=== PATIENT | male | born 1945 | race Caucasian/White ===

== ENCOUNTER 2017-12-21 00:10 | Outpatient (CLI) | payer MEDICARE, OTHER, SELFPAY ==
[2017-12-23 05:40] LABS: Hemoglobin A1C 8.1 % (4.5-6.2)
== END 2017-12-21 00:30 ==
PROVIDERS: PCP Family Medicine; Visit Provider Family Medicine
DX: E11.9 Type 2 diabetes mellitus without complications (principal)
CPT/HCPCS: 36415; 83036

== ENCOUNTER 2018-12-18 07:00 | Outpatient (CLI) | payer MEDICARE, OTHER, SELFPAY ==
[2018-12-18 12:32] LABS: COMMENT (LAB VIEW ONLY) 65.84 mg/dL; Microalb ug/mg Crea 10.2 ug/mg Cr
[2018-12-18 13:47] LABS: ALT 32 U/L (16-63); AST 12 U/L (15-37); Albumin 4.2 g/dL (3.4-5.0); Alkaline Phosphatase 57 U/L (46-116); BUN 25 mg/dL (7-18); Bilirubin, Total 0.6 mg/dL (0.2-1.0); CREATININE 0.96 mg/dL (0.70-1.30); Calcium 9.2 mg/dL (8.5-10.1); Calculated LDL 61 mg/dL; Chloride 103 mmol/L (98-107); Cholesterol 137 mg/dL (50-200); Glucose 136 mg/dL (70-100); HDL Cholesterol 53 mg/dL (40-60); Magnesium 1.9 mg/dL (1.8-2.4); Potassium 4.8 mmol/L (3.5-5.1); Sodium 139 mmol/L (136-145); Triglyceride 115 mg/dL (30-150)
[2018-12-18 14:03] LABS: Hemoglobin A1C 9.7 % (4.5-6.2)
== END 2018-12-18 07:20 ==
PROVIDERS: PCP Family Medicine; Visit Provider Family Medicine
DX: E11.9 Type 2 diabetes mellitus without complications (principal); E83.42 Hypomagnesemia
CPT/HCPCS: 36415; 80053; 80061; 82043; 82570; 83036; 83735

== ENCOUNTER 2019-10-13 11:41 | Emergency (ER) | payer MEDICARE, OTHER, SELFPAY ==
[2019-10-13 11:48] VITALS: BP 133/75; PULSE 104; RESP 18; TEMP 36.3; O2SAT 98
--- NOTE | 2019-10-13 11:58 | ED.GENADUL_ITS ---
Discharge Plan Disposition Patient Disposition: HOME Condition: Stable Discharge Details Chief Complaint: DentalOral Clinical Impression: Dental infection Primary Care Provider: Fifi Tejada ED Provider: Mario Abreu [place] Meds and New Rx's Prescriptions: New amoxicillin-pot clavulanate [Augmentin] 875-125 mg tablet 1 tab PO BID Qty: 14 RF: 0 Continued PreserVision AREDS-2 [id number] ue-xtxs-vb-mg capsule 1 tab PO DAILY RF: 0 Jardiance 25 mg tablet 25 mg PO DAILY Qty: 90 RF: 3 aspirin [Aspir-81] 81 MG tablet,delayed release (DR/EC) 1 tab PO DAILY RF: 0 sildenafil [Viagra] 100 MG tablet 1 tab PO PRN Qty: 42 RF: 2 ginkgo biloba extract 60 MG capsule 60 mg PO DAILY RF: 0 (DME) pen needle, diabetic [BD Ultra-Fine Jen Pen Needle] 1 EACH needle 1 ea Miscellaneous DAILY Qty: 100 RF: 4 Slow-Mag 71.5 MG tablet,delayed release (DR/EC) 71.5 mg PO BID Qty: 60 RF: 2 (DME) blood-glucose meter Misc 1 ea Miscellaneous ONCE Qty: 1 RF: 0 (DME) lancets 28 gauge misc 1 ea Miscellaneous DAILY Qty: 100 RF: 4 (DME) OneTouch Ultra Blue Test Strip Strip See Rx Instructions .ROUTE .MEDSUPPLY Qty: 100 RF: 3 metformin [Glucophage] 1,000 mg tablet 1,000 - 1,500 mg PO as directed Qty: 225 RF: 4 omeprazole magnesium [Prilosec OTC] 20 mg tablet,delayed release (DR/EC) 20 mg PO DAILY Qty: 90 RF: 4 tamsulosin 0.4 mg capsule 0.4 mg PO QHS Qty: 90 RF: 4 glipizide 10 mg tablet extended release 24hr 20 mg PO DAILY Qty: 180 RF: 4 simvastatin [Zocor] 40 mg tablet 40 mg PO DAILY Qty: 90 RF: 4 Discharge Instructions Instructions: Dental Abscess (ED) Additional Instructions: follow up with a dentist as soon as possible if you have pain take 1000mg tylenol every 6 hours for pain as needed if you have severe worsening pain, difficulty breathing or swallowing or fevers return to the emergency department Medical Decision Making 74 yo male comes in with one day of right lower tooth pain and mild swelling. Denies fevers, dyspnea or difficlty swallowing. 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 Suspect dental infection and will start on antibiotics and have him f/u with dentist. Return precautions given Differential Diagnosis Differential Diagnosis: dental abscess dental infection HPI General Mode of arrival: ambulatory . Date/Time Provider Initiated Documentation: 10/13/19 11:42 . Limitations to Documentation: no limitations . Information obtained by: patient . History of Present Illness 74 year old M presents to the emergency department with the chief complaint of right lower jaw pain, described as moderate, with intensity rated at 4. No relieving factors improve symptom(s), No exacerbating factors reported . Patient did receive the following treatments prior to arrival, none Related Data Home Medications Medication Instructions Recorded Confirmed aspirin [Aspir-81] 1 tab PO DAILY tab-cap 06/05/12 10/13/19 sildenafil [Viagra] 1 tab PO PRN #42 tab 06/16/12 10/13/19 ginkgo biloba extract 60 mg PO DAILY 04/30/13 10/13/19 pen needle, diabetic [BD #100 ndl 10/14/14 10/13/19 Ultra-Fine Jen Pen Needle] Slow-Mag 71.5 mg PO BID #60 tab-cap 04/25/17 10/13/19 blood sugar diagnostic #100 each 10/17/18 10/13/19 blood-glucose meter #1 ea 10/17/18 10/13/19 lancets 28 gauge #100 ea 10/17/18 10/13/19 vit C 250 mg-E 200 unit-zinc 40 1 tab PO DAILY cap 12/18/18 10/13/19 mg-copper 1 ql-miexpd-wabdxo capsule metformin 1,000 mg tablet 1,000 - 1,500 mg PO as directed 12/22/18 10/13/19 #225 tab-cap omeprazole magnesium 20 mg 20 mg PO DAILY #90 tab-cap 02/04/19 10/13/19 tablet,delayed release empagliflozin 25 mg tablet 25 mg PO DAILY #90 tab-cap 06/17/19 10/13/19 tamsulosin 0.4 mg capsule 0.4 mg PO QHS #90 cap 07/03/19 10/13/19 glipizide 10 mg tablet, extended 20 mg PO DAILY #180 tab-cap 07/11/19 10/13/19 release 24 hr simvastatin 40 mg tablet 40 mg PO DAILY #90 tab-cap 09/12/19 10/13/19 amoxicillin-pot clavulanate 1 tab PO BID #14 tab 10/13/19 [Augmentin] Previous Rx's Medication Instructions Recorded Slow-Mag 71.5 mg PO BID #60 tab-cap 04/25/17 blood sugar diagnostic #100 each 10/17/18 blood-glucose meter #1 ea 10/17/18 lancets 28 gauge #100 ea 10/17/18 metformin 1,000 mg tablet 1,000 - 1,500 mg PO as directed 12/22/18 #225 tab-cap omeprazole magnesium 20 mg 20 mg PO DAILY #90 tab-cap 02/04/19 tablet,delayed release empagliflozin 25 mg tablet 25 mg PO DAILY #90 tab-cap 06/17/19 tamsulosin 0.4 mg capsule 0.4 mg PO QHS #90 cap 07/03/19 glipizide 10 mg tablet, extended 20 mg PO DAILY #180 tab-cap 07/11/19 release 24 hr simvastatin 40 mg tablet 40 mg PO DAILY #90 tab-cap 09/12/19 amoxicillin-pot clavulanate 1 tab PO BID #14 tab 10/13/19 [Augmentin] Allergies Allergy/AdvReac Type Severity Reaction Status Date / Time No Known Allergies Allergy Unverified 10/13/19 11:53 General Stated Complaint: DentalOral DARIEN: 4 Review of Systems All systems reviewed & are unremarkable except as noted in HPI and below Constitutional Constitutional: Denies chills, Denies fever(s) and Denies weakness ENT Ears, Nose, Mouth, and Throat: Denies change in voice Cardiovascular Cardiovascular: Denies chest pain and Denies dyspnea Respiratory Respiratory: Denies cough and Denies dyspnea Gastrointestinal Gastrointestinal: Denies abdominal pain, Denies nausea and Denies vomiting Musculoskeletal Musculoskeletal: Denies joint swelling Neurologic Neurologic: Denies weakness Psychiatric Psychiatric: Denies depression [facility] Surgical History (Updated 12/16/18 @ 11:08 by Bj Borja) Tonsillectomy and adenoidectomy Social History Smoking/Tobacco Use Status: Never Alcohol Intake: never Drug use: Never Do you feel safe at home: Yes Do you feel safe in your relationship?: Yes Exam Const General: no acute distress Orientation: alert HENMT Head: normal to inspection Ears: external ears normal General nose exam: external nose normal Mouth: moist mucous membranes Eyes General: appearance normal, both eyes and all related structures Neck Neck: normal visual inspection Resp Effort & Inspection: normal respiratory effort and able to speak in complete sentences Cardio Rate: regular rate Skin General skin exam: no rashes or lesions noted Neuro General: patient alert and patient oriented x3 Extrem General: normal to inspection Psych Mental Status: mental status grossly normal Course Vital Signs Vital signs: Vital Signs Temperature 36.3 C L 10/13/19 11:48 Pulse 104 H 10/13/19 11:48 Respiratory Rate 18 10/13/19 11:48 Blood Pressure 133/75 10/13/19 11:48 Pulse Oximetry 98 10/13/19 11:48 Temperature 36.3 C L 10/13/19 11:48 Temperature Source Temporal Artery Scan 10/13/19 11:48 Pulse 104 H 10/13/19 11:48 Respiratory Rate 18 10/13/19 11:48 Respiratory Effort Non-Labored 10/13/19 11:52 Blood Pressure 133/75 10/13/19 11:48 Blood Pressure Position Sitting 10/13/19 11:48 Pulse Oximetry 98 10/13/19 11:48 Oxygen Delivery Method Room Air 10/13/19 11:48 Oxygen Flow Rate 0 10/13/19 11:48 Pain Level 6 10/13/19 11:48
== END 2019-10-13 12:05 | disposition home or self-care (01) ==
PROVIDERS: Emergency Provider Emergency Medicine; PCP Family Medicine
DX: R68.84 Jaw pain (principal); K04.7 Periapical abscess without sinus; E11.9 Type 2 diabetes mellitus without complications; Z79.84 Long term (current) use of oral hypoglycemic drugs
CPT/HCPCS: 99283

== ENCOUNTER 2020-07-06 10:49 | Outpatient (CLI) | payer MEDICARE, OTHER, SELFPAY ==
[2020-07-06 13:22] LABS: ALT 30 U/L (16-63); AST 11 U/L (15-37); Albumin 4.5 g/dL (3.4-5.0); Alkaline Phosphatase 61 U/L (46-116); Anion Gap 11.7 mmol/L (3-11); BUN 20 mg/dL (7-18); Bilirubin, Total 0.6 mg/dL (0.2-1.0); CO2 26.3 mmol/L (21.0-32.0); Calcium 9.2 mg/dL (8.5-10.1); Calculated LDL 52 mg/dL (<100); Chloride 103 mmol/L (98-107); Cholesterol 135 mg/dL (<200); Glucose 251 mg/dL (74-106); HDL Cholesterol 56 mg/dL (40-60); Magnesium 1.8 mg/dL (1.8-2.4); Potassium 4.1 mmol/L (3.5-5.1); Sodium 141 mmol/L (136-145); Total Protein 7.6 g/dL (6.4-8.2); Triglyceride 135 mg/dL (<150); Vitamin B12 180 pg/mL (193-986)
[2020-07-06 13:51] LABS: Microalb ug/mg Crea 18.3 ug/mg Cr
== END 2020-07-06 10:50 | disposition home or self-care (01) ==
LOC: LOS 10:50
PROVIDERS: PCP Family Medicine; Visit Provider Family Medicine
DX: E11.9 Type 2 diabetes mellitus without complications (principal); E83.42 Hypomagnesemia; E53.8 Deficiency of other specified B group vitamins
CPT/HCPCS: 36415; 80053; 80061; 82043; 82570; 82607; 83735

== ENCOUNTER → 2021-09-06 08:55 | Outpatient (BNVA) | payer MEDICARE, OTHER, SELFPAY | PROVIDERS: PCP Nurse Practitioner Family; Referring Provider Nurse Practitioner Family; Visit Provider Surgery | DX: K46.9 Unspecified abdominal hernia without obstruction or gangrene (principal); R01.1 Cardiac murmur, unspecified | CPT/HCPCS: 99215 ==

== ENCOUNTER 2021-09-20 03:51 | Outpatient (CLI) | payer MEDICARE, OTHER, SELFPAY ==
[2021-09-20 12:19] LABS: HCT 40.1 % (40.0-50.0); HGB 13.2 g/dL (13.5-17.5); MCH 28.3 pg (27.0-33.0); MCHC 32.9 % (32.0-36.0); MCV 86 fL (80-95); MPV 10.3 fL (8.0-11.0); Platelet Count 243 10^3/uL (130-400); RBC 4.66 10^6/uL (4.36-5.78); RDW 13.6 % (11.8-14.1); RDW-SD 42.7 fL; WBC 5.32 10^3/uL (4.4-10.8)
[2021-09-20 12:32] LABS: Hemoglobin A1C 7.3 % (<5.7)
[2021-09-20 12:49] LABS: COMMENT (LAB VIEW ONLY) 104.28 mg/dL; Microalb ug/mg Crea 6.4 ug/mg Cr
[2021-09-20 13:04] LABS: ALT 25 U/L (16-63); AST 9 U/L (15-37); Alkaline Phosphatase 38 U/L (46-116); Anion Gap 13.6 mmol/L (3-11); BUN 32 mg/dL (7-18); Bilirubin, Total 0.6 mg/dL (0.2-1.0); CO2 22.4 mmol/L (21.0-32.0); CREATININE 1.2 mg/dL (0.70-1.30); Calcium 8.9 mg/dL (8.5-10.1); Calculated LDL 47 mg/dL (<100); Chloride 104 mmol/L (98-107); Cholesterol 124 mg/dL (<200); Estimated GFR 58.56 (mL/min/1.73m2); Glucose 127 mg/dL (74-106); HDL Cholesterol 52 mg/dL (40-60); Potassium 3.9 mmol/L (3.5-5.1); Sodium 140 mmol/L (136-145); Total Protein 7.1 g/dL (6.4-8.2); Triglyceride 129 mg/dL (<150)
[2021-09-20 13:12] LABS: Vitamin B12 > 2000 pg/mL (193-986)
== END 2021-09-20 03:52 | disposition home or self-care (01) ==
LOC: LOS 03:51
PROVIDERS: PCP Nurse Practitioner Family; Visit Provider Family Medicine
DX: I10 Essential (primary) hypertension (principal); E11.9 Type 2 diabetes mellitus without complications; E53.8 Deficiency of other specified B group vitamins; E78.5 Hyperlipidemia, unspecified
CPT/HCPCS: 36415; 80053; 80061; 85027; 82043; 82570; 82607; 83036

== ENCOUNTER → 2021-10-16 02:54 | Outpatient (CLI) | payer MEDICARE, OTHER, SELFPAY ==
--- NOTE | 2021-10-16 14:52 | DI.US_ITS ---
APPROVED REPORT EXAM: Comprehensive 2D, Doppler, and color-flow Echocardiogram Patient Location: Out-Patient [facility] Operator: Rita Rosado RDCS (AE) Indications: Systolic heart murmur Other Information Study Quality: Adequate Conclusion Normal left ventricular wall thickness and chamber size. Estimated ejection fraction is 55 to 60%. Wall motion is normal Normal right ventricular size and systolic function Both atria are normal in size Trileaflet aortic valve with trace regurgitation Normal mitral valve with trace regurgitation Normal tricuspid valve with trace regurgitation Mildly dilated ascending aorta measuring 3.67 cm Wall motion Left Ventricle The left ventricle is normal size. The left ventricular systolic function is normal. The left ventric ular ejection fraction is within the normal range. There is normal left ventricular wall thickness. T here is normal LV segmental wall motion. There is no ventricular septal defect visualized. LVEF is 55 -60%. Right Ventricle The right ventricle is normal size. The right ventricular systolic function is normal. The RVSP is 21 .8mmHg. Atria The left atrium size is normal. The right atrium size is normal. The interatrial septum is intact wit h no evidence for an atrial septal defect. Aortic Valve The aortic valve is normal in structure. Aortic valve is trileaflet. There is no aortic valvular sten osis. Trace aortic regurgitation. Mitral Valve The mitral valve is normal in structure. No evidence of mitral valve stenosis. Trace mitral regurgita tion. Tricuspid Valve The tricuspid valve is normal in structure. There is no tricuspid valve stenosis. Trace tricuspid reg urgitation. Pulmonic Valve The pulmonary valve is normal in structure. There is no pulmonic valvular stenosis. Trace pulmonic re gurgitation. Great Vessels The aortic root is normal in size. The ascending aorta is mildly dilated. Aortic arch is normal in ca liber. IVC is normal in size and collapses >50% with inspiration. Pericardium There is no pericardial effusion. 2D Dimensions IVSD d PLAX 0.96 cm M: 0.6-1.2 LV Vol A2C d MOD 71.5 mL LVPW d PLAX 0.97 cm M: 0.6 - 1.2 LV Vol A4C d MOD 76.8 mL LVID d PLAX 4.06 cm M: 4.2 - 5.8 LA vol/ BSA A2C s A-L 15.5 mL/m2 LVDs 2.85 cm M: 2.5 - 4.0 LA vol/ BSA A4C s A-L 13.7 mL/m2 Ao Root d 3.00 cm M: 3.1 - 3.7 LA Vol/ BSA Biplane s A-L 14.7 mL/m2 RA Area A4C 12.27 cm2 LA Area A4C s MOD 10.88 cm2 RA Vol/ BSA A4C s A-L 16.2 mL/m2 LA Area A2C s MOD 11.67 cm2 Ao Asc Diam d 3.67 cm M: 2.6 - 3.4 LV EF A4C MOD 55.6 % LV EF Teichholz 56.1 % LV EF A2C MOD 57.9 % LVEF (Guzman's) 57.12 % M: 52 - 72 LV EF Biplane MOD 57.1 % LV Volume 59.47 mL M: 62 - 150 SV 43.29 mL LV Volume Index 33.98 mL/m2 M: 34 - 74 SV Index 24.66 mL/m2 LV Vol Biplane MOD 75.8 mL FS 28.90 % M-Mode TAPSE 2.68 cm (M/F) >1.7 LV Diastology MV E' medial 0.122 (>0.07 m/s) E/A Ratio 0.7 LV E/e MED 5.70 (<14) MV E Vmax 0.70 (0.4-1.3 m/s) MV E' lateral 0.093 (>0.1 m/s) MV A Vmax 1.00 (0.4-1.3 m/s) LV E/e LAT 7.50 (<14) MV E/A Ratio 0.67 MV E/E' medial 5.70 MV E/E' lateral 7.50 Aortic Valve LVOT Area 3.36 cm2 AoV Area Vmax 2.47 cm2 LVOT Vmax 0.88 m/s AoV Area/ BSA (Vmax) 1.41 cm2/m2 LVOT Mean Rajendra. 0.57 m/s BERNICE Mean Rajendra. 2.22 cm2 LVOT Peak Grad 3.1 mmHg BERNICE Mean Rajendra. Index 1.27 cm2/m2 LVOT Mean Grad 1.5 mmHg LVOT VTI 0.145 m LVOT Diam s 2.05 cm AoV Vmax 1.19 m/s Velocity Ratio 0.73 AoV Mean Rajnedra. 0.85 m/s AoV Peak Grad 5.7 mmHg LVOT SV 48.61 mL AoV Mean Grad 3.2 mmHg AoV VTI 0.206 m AoV Area VTI 2.35 cm2 AoV Area/ BSA (VTI) 1.34 cm/m2 Mitral Valve MV DT 375 (160-240 msec) MV PHT 109 msec MV Area PHT 2.02 cm2 MV VTI 0.209 m MV Area VTI 2.33 (4.0-6.0 cm2) Pulmonary Valve PV Vmax 1.18 (0.5-1.5 m/s) RVOT Peak Gr. 2.45 mmHg PV Peak Grad 5.5 mmHg RVOT Mean Gr. 1.00 mmHg PV Mean Grad 2.8 mmHg RVOT VTI 0.116 m PV VTI 0.184 m RVOT Vmax 0.78 m/s Tricuspid Valve TR Peak Grad 18.8 mmHg TR Vmax 2.17 m/s RA Pressure 3.00 mmHg RVSP (TR) 21.8 mmHg
== END ==
PROVIDERS: PCP Nurse Practitioner Family; Visit Provider Surgery
DX: R01.1 Cardiac murmur, unspecified (principal); I35.8 Other nonrheumatic aortic valve disorders; I34.0 Nonrheumatic mitral (valve) insufficiency
CPT/HCPCS: 93306

== ENCOUNTER 2021-10-25 02:25 | Outpatient (CLI) | payer MEDICARE, OTHER, SELFPAY ==
[2021-10-25 12:26] LABS: Source Nasal/Nares
[2021-10-25 14:20] LABS: COVID-19 PCR Negative (Negative)
== END 2021-10-25 02:26 | disposition home or self-care (01) ==
PROVIDERS: PCP Nurse Practitioner Family; Visit Provider Surgery
DX: Z01.818 Encounter for other preprocedural examination (principal); Z20.822 Contact with and (suspected) exposure to COVID-19
CPT/HCPCS: 87635

== ENCOUNTER 2021-10-27 05:54 | Day surgery (SDC) | payer MEDICARE, OTHER, SELFPAY ==
[2021-10-27] VITALS (8 sets, daily range): BP systolic 90–130; BP diastolic 52–85; PULSE 55–78; RESP 14–33; TEMP 36–36.5; O2SAT 94–98; BMI 27.1
--- NOTE | 2021-10-27 05:18 | W.PM.HP.N ---
Date of service: 10/27/21 History of Present Illness History of Present Illness Chief Complaint: right groin bulge Narrative: Tee is a 76-year-old male who had a right inguinal hernia repaired around the age of 4 years.? Most of his life this has not bothered him.? Over the past several years, he has noticed recurrent bulge in the inguinal region at the base of the scrotum.? This occurs most commonly with forceful defecation.? He has been able to reduce it on his own.? He has not required any hospitalization.? He does think that it has grown in size over the past year or so, and it has required increased frequency of reduction. I should mention that previous notes mention a recurrent LEFT inguinal hernia, but Mr. Snowden indicates that the hernia is right sided and his previous scar is on the right side as well. Today, he tells me that he has had occasional episodes of left-sided bulging. But he is able to reduce all of this without any difficulty. Furthermore, vigorous activity still causes the right side to bulge. That is more tender and causes more discomfort. He also has more difficulty reducing that. We talked about this at length this morning, and for today, we will proceed with right-sided inguinal herniorrhaphy and reassess his symptoms and desire to fix the left side in the future. During the last office visit, I detected a heart murmer. He underwent an ECHO that shows race mitral, aortic and tricuspid regurgitation. Review of Systems All systems reviewed & are unremarkable except as noted in HPI and below Constitutional Constitutional: Reports system reviewed and no additional complaints, except as documented Cardiovascular Cardiovascular: Reports system reviewed and no additional complaints, except as documented Respiratory Respiratory: Reports system reviewed and no additional complaints, except as documented Gastrointestinal Comments: hernia with straining for BM Genitourinary Genitourinary: Reports system reviewed and no additional complaints, except as documented Musculoskeletal Musculoskeletal: Reports system reviewed and no additional complaints, except as documented PFSH All Active Problems (Updated 10/27/21 @ 06:42 by Mary Quintero RN) Diabetes mellitus (Acute) uncontrolled/no nephropathy /no retinopathy 2015 Gastroesophageal reflux disease without esophagitis (Acute) Hyperlipidemia (Acute) Benign prostatic hyperplasia (Chronic) Diabetic retinopathy (Acute ~06/2021) 07/11/21 B/L MODERATE/SHIPPEE Inguinal hernia of left side without obstruction or gangrene (Acute) 2021-small B12 deficiency (Acute) Heart murmur (Acute) Medical History (Updated 10/27/21 @ 06:42 by Mary Quintero RN) History of alcoholism [place] (hard of hearing) Surgical History (Updated 10/27/21 @ 06:18 by Mary Quintero RN) History of appendectomy History of hernia repair Tonsillectomy and adenoidectomy Social History Smoking/Tobacco Use Status: Never Smoking risk assessment performed?: Yes Alcohol Intake: former Drug use: Never Substance use type: does not use Do you feel safe at home: Yes Do you feel safe in your relationship?: Yes Additional Social history: unable to assess [place] Allergies and Home Medications Allergies Allergy/AdvReac Type Severity Reaction Status Date / Time No Known Allergies Allergy Verified 10/26/21 12:46 Home Medications Medication Instructions Recorded Confirmed Type aspirin 81 mg tablet,delayed 1 tab PO DAILY 06/05/12 10/26/21 History release (Aspir-) ginkgo biloba extract 60 mg capsule 60 mg PO DAILY 04/30/13 10/26/21 History magnesium chloride 71.5 mg 71.5 mg PO BID #60 tab-caps 04/25/17 10/27/21 Rx (magnesium chloride) tablet,delayed release (Slow-Mag) blood-glucose meter #1 ea 10/17/18 10/26/21 Rx vit C 250 mg-vit E 90 mg-zinc 40 1 tab PO DAILY 12/18/18 10/27/21 History mg-copper 1 so-dbhyno-brcujl capsule (PreserVision AREDS-2) simvastatin 40 mg tablet (Zocor) 40 mg PO DAILY #90 tab-caps 08/30/20 10/27/21 Rx blood-glucose sensor (Dexcom G6 #3 ea 03/03/21 10/26/21 Rx Sensor device) blood-glucose transmitter (Dexcom #1 ea 03/03/21 10/26/21 Rx G6 Transmitter device) blood sugar diagnostic #100 ea 03/21/21 10/26/21 Rx lancets 28 gauge #100 ea 03/21/21 10/26/21 Rx blood sugar diagnostic (Blood #10 ea 01/26/22 09/01/22 Rx Glucose Test strips) blood-glucose meter #1 ea 03/22/21 10/26/21 Rx empagliflozin 25 mg tablet 25 mg PO DAILY #90 tab-caps 04/04/21 10/26/21 Rx (Jardiance) omeprazole magnesium 20 mg 20 mg PO DAILY #90 tab-caps 06/19/21 10/27/21 Rx tablet,delayed release (Prilosec OTC) tamsulosin 0.4 mg capsule 0.4 mg PO QHS bph #90 caps 09/11/21 10/27/21 Rx glipizide 10 mg tablet, extended 20 mg PO DAILY #180 tab-caps 09/18/21 10/27/21 Rx release 24 hr insulin glargine 100 unit/mL (3 25 unit (0.25 mL) subcut DAILY #24 09/20/21 10/27/21 Rx mL) subcutaneous pen (Lantus mL Solostar U-100 Insulin) metformin 1,000 mg tablet 1,000 - 1,500 mg PO BID #225 10/03/21 10/27/21 Rx tab-caps pen needle, diabetic 31 gauge x #100 ea 10/09/21 10/26/21 Rx 3/16 (Comfort EZ Pen [place]) Exam Const General: cooperative, healthy appearing and comfortable Orientation: awake and oriented x3 Eyes General: appearance normal, both eyes and all related structures Conjunctivae: conjunctivae normal Sclera: sclerae normal Resp Effort & Inspection: normal respiratory effort and able to speak in complete sentences Cardio Jugular venous pressure: no JVD Rate: regular rate Rhythm: regular rhythm Heart Sounds: S1 normal, S2 normal and murmur GI Inspection: non-distended Palpation: soft, no guarding, hernia and nontender Auscultation: normal bowel sounds Skin General skin exam: normal turgor Neuro General: patient alert, patient awake and patient oriented x3 Cognition: normal cognition Extrem Right lower extremity: no edema Left lower extremity: no edema
--- NOTE | 2021-10-27 05:23 | W.PM.DSUDISC ---
Discharge Plan Disposition Patient Disposition: HOME Condition: Good Discharge Details Reason For Visit: right direct inguinal hernia repair Attending Provider: Mike Siegel Primary Care Provider: Sreedhar Navarro Home Meds and New Rx's Prescriptions: Continued PreserVision AREDS-2 [id number] xi-gtwv-zh-mg capsule 1 tab PO DAILY aspirin [Aspir-81] 81 MG tablet,delayed release (DR/EC) 1 tab PO DAILY ginkgo biloba extract 60 MG capsule 60 mg PO DAILY Slow-Mag 71.5 MG tablet,delayed release (DR/EC) 71.5 mg PO BID Qty: 60 2RF (DME) blood-glucose meter Misc 1 ea Miscellaneous ONCE Qty: 1 0RF Rx Instructions: METER TYPE ONE TOUCH ULTRA MINI test daily simvastatin [Zocor] 40 mg tablet 40 mg PO DAILY Qty: 90 4RF (DME) Dexcom G6 Transmitter Device See Rx Instructions .ROUTE .MEDSUPPLY Qty: 1 0RF Rx Instructions: As directed (DME) Dexcom G6 Sensor Device See Rx Instructions .ROUTE .MEDSUPPLY Qty: 3 0RF Rx Instructions: As directed (DME) lancets 28 gauge misc 1 ea Miscellaneous DAILY Qty: 100 3RF Rx Instructions: FOR ONE TOUCH ULTRA MINI METER test once/day (DME) blood sugar diagnostic Strip See Rx Instructions .ROUTE .MEDSUPPLY Qty: 100 3RF Rx Instructions: test once a day (DME) blood-glucose meter Misc See Rx Instructions .ROUTE .MEDSUPPLY Qty: 1 0RF Rx Instructions: As directed, daily (DME) Blood Glucose Test Strip See Rx Instructions .ROUTE .MEDSUPPLY Qty: 10 0RF Rx Instructions: As directed, once a day Jardiance 25 mg tablet 25 mg PO DAILY Qty: 90 3RF omeprazole magnesium [Prilosec OTC] 20 mg tablet,delayed release (DR/EC) 20 mg PO DAILY Qty: 90 4RF tamsulosin 0.4 mg capsule 0.4 mg PO QHS Qty: 90 4RF glipizide 10 mg tablet extended release 24hr 20 mg PO DAILY Qty: 180 0RF Rx Instructions: take 2 tablets daily insulin glargine [Lantus Solostar U-100 Insulin] 100 unit/mL (3 mL) insulin pen 25 unit subcut DAILY Qty: 24 3RF metformin 1,000 mg tablet 1,000 - 1,500 mg PO BID Qty: 225 1RF Rx Instructions: Take one tablet in am and 1.5 tablet in evening (DME) pen needle, diabetic [Comfort EZ Pen [place]] 31 gauge x 3/16 needle See Rx Instructions .ROUTE .MEDSUPPLY Qty: 100 4RF Rx Instructions: Daily Discharge Instructions Instructions: Open Herniorrhaphy (IP) Additional Instructions: 1. Resume all of your medications. 2. Okay to use tylenol and ibuprofen over the counter as needed. 3. Leave bandage in place for 24 hours, then remove. 4. Shower with warm soapy water. Pat dry. Use a bandaid if needed to protect your clothing. 5. No soaking or tub baths until I see you in the office. 6. No heavy lifting until I see you in the office. 7.Call the office (or go directly to the emergency room after hours) if you notice any of the following: Develop chills (warm to touch), or if you have a thermometer and your temperature is above 101 Difficulty breathing or difficultly swallowing Persistent vomiting Any bleeding ? exceeding one tablespoon 8. Call your physician if the site where your intravenous was started becomes red, swollen, painful, and warm to touch. Referrals: Mike Siegel MD [ [facility] STAFF PHYSICIAN] - Activity:: no heavy lifting Remove Dressings/Wound Care:: 24 hours Shower/Bathe:: 24 hours Diet:: As Tolerated
--- NOTE | 2021-10-27 05:26 | ROE_ITS ---
Date of service: 10/27/21 Time of Service: 08:52 Operative Note Operative Note DATE OF PROCEDURE: 10/27/21 PRE-OP DIAGNOSIS: Recurrent right inguinal hernia POST-OP DIAGNOSIS: other (Direct right inguinal hernia) PROCEDURE: Open right inguinal herniorrpahy with mesh SURGEON: Mike Siegel [employer]ILDBIRTH AND INFANT CARE TEACHER: Chery Salazar Refer to Anesthesia Record ESTIMATED BLOOD LOSS: 25 PATHOLOGY: none sent Implants: Bard mesh Indications: Tee is a 76-year-old male who had a right inguinal hernia repaired around the age of 4 years.? Most of his life this has not bothered him.? Over the past several years, he has noticed recurrent bulge in the inguinal region at the base of the scrotum.? This occurs most commonly with forceful defecation.? He has been able to reduce it on his own.? He has not required any hospitalization.? He does think that it has grown in size over the past year or so, and it has required increased frequency of reduction. Procedure Description: I began by confirming the correct site with the patient. Next, after induction of general anesthesia, the anesthetic service established an ultrasound-guided local field block.. Surgical site was then prepped and draped in the usual fashion. I began by making an oblique incision over the right inguinal region. I dissected down through the skin to the deep fascia. Next, I incised the fascia along the length of the inguinal canal to the external ring. There were a fair amount of dense adhesions in the inguinal canal. I then carefully identified the ilioinguinal nerve and it from the cord structures.. Once this was complete, I bluntly dissected the shelving edge of the inguinal ligament down towards the pubic tubercle. The floor of the inguinal canal was attenuated with a large defect towards the pubic tubercle. I did not see any evidence of any previous repair of Hesselbach's triangle. I encircled all cord structures with a Chevy drain. Next, I began dissecting the specific cord structures. Great care was taken to spare the vas deferens and the blood supply to the testicle. There were dense adhesions around the internal ring, and I saw no evidence of of any indirect inguinal hernia. I believe Tee's symptoms were all arising from a direct inguinal hernia. Therefore, I cut and mesh to rebuild the posterior wall and floor of the inguinal canal. I started by fixing it to the pubic tubercle. Next, I used Prolene sutures to affix it to the shelving edge of the inguinal ligament and the conjoined tendon. Laterally I tacked it to the transversalis fascia and reconstructed an internal ring without any strain on the cord structures. Once this was complete, I irrigated the surgical field. It appeared hemostatic. I then closed the anterior portion of the fascia to reconstruct the front wall of the inguinal canal. I did this with interrupted Vicryl stitches. Once again, I irrigated the surgical field and inspected for hemostasis. Finally, I approximated the superficial fascia and the deep layers of the skin with absorbable suture. Skin was closed with absorbable sutures. Bandages were applied, the patient was awakened and transferred to the recovery unit.
--- OUTSIDE RECORDS SUMMARY | 2021-10-27 05:56 | XMS_ITS | Clinical Summary ---
:1945 Author Organization [facility] Address [address] [place] [address] Care Team Providers Name Role Phone Unknown, Provider Primary Care Provider Social History Tobacco Use Types Packs/Day Years Used Date Never Assessed Sex Assigned at Date Recorded Not on file Plan of Treatment Health Maintenance Due Date Last Done Comments Fall Risk Screening 2008 Care Teams Research And Evaluation Analyst Relationship Specialty Start Date End Date Unknown, Provider, PCP - General 12/31/14
--- OUTSIDE RECORDS SUMMARY | 2021-10-27 05:56 | XMS_ITS | Encounter Summary ---
:1945 Author Organization [facility] Address [address] [place] [address] Care Team Providers Name Role Phone Unknown, Provider Primary Care Provider Encounter Details Date Type Department Care Team Description 09/11/2006 Before [facility] Husam Decker Converted Visit Urology - [facility] Rand Vasquez MD (Lorena) [address] [facility] [address] [place] [address] [address] [place] [id number] (Wo rk) Social History Tobacco Use Types Packs/Day Years Used Date Never Assessed Sex Assigned at Date Recorded Not on file documented as of this encounter Progress Notes Husam Decker MD - 01/02[birth year]20091957 EST DIVISION OF UROLOGY PROGRESS/FOLLOWUP NOTE - 10/11/2006 ALICIA Snowden was seen in my office today. This 61gentleman was previously evaluated at an outside emergency room. He was engaged in rather strenuous activity. He had a sudden onset of right flank pain. He was evaluated in the local emergency room. Noncontrast CT scan was obtained. There was a question raised about the possibility of a right ureteral tumor. Mr. Snowden comes to the office today for further urologic evaluation and discussion of treatment options. Tee feels that he is voiding with a good stream. He feels that his bladder empties completely, and he denies any dysuria or gross hematuria. He has nocturia of, at most, one time per night, and often not at all. REVIEW OF SYSTEMS Review of systems was completed, documented, and discussed with the patient. CURRENT MEDICATIONS Current medications are listed as Vytorin, metformin, Avandia, a baby aspirin per day, and nige-ovu-cbhbbsu vitamin supplements. ALLERGIES He reports no allergies. SOCIAL HISTORY He does not smoke or use alcohol. He is a light user of caffeine. PAST MEDICAL HISTORY He reports no major cardiac or respiratory problems. Medical history is remarkable for his diabetes and high cholesterol as noted. PAST SURGICAL HISTORY He reports no prior surgical procedures. LABORATORY Mr. Snowden tells me that a PSA obtained previously was reported within normal limits. He does travel frequently between [place] and [place]. CT urogram was obtained prior to todays visit. I did review the CT urogram with Mr. Snowden. 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 Also noted were bilateral benign hydroceles, as well as a left inguinal hernia. ASSESSMENT AND PLAN I had a detailed discussion with Tee concerning these findings. I believe that thepreviously noted finding is most likely benign, but I have also discussed the possibility of proceeding to a more detailed urologic evaluation with cystoscopy and retrograde studies. Mr. Snowden declines that level of i ntervention at the present time. He has agreed to follow up in January with a CT scan at that time.Certainly if there is any change or other abnormalities noted, more detailed intervention can be undertaken. As far as the hydroceles and hernias, again are not bothersome to him, and he wishes no intervention. Likewise, outflow obstructive symptoms are not bothersome. I have asked him to contact my office if he should have other urologic questions, concerns or problems. Signed by Husam Decker MD 02/14/2007 13:57 Husam Decker MD - Husam Decker MD - Job ID: [id number] Doc ID: [id number] cc: documented in this encounter Plan of Treatment Not on filedocumented as of this encounter Procedures Procedure Name Priority Date/Time Associated Diagnosis Comme nts CT UROGRAM W/WO 09/11/2006 15:38 Results for this CONTRAST EDT procedure are i n the results section. documented in this encounter Results CT UROGRAM (09/11/2006 15:38 EDT) Anatomical Region Laterality Modality Other Specimen Narrative [facility] - 08/25/2008 13 :10 EDT pt to lab 1st for bun/creatinine. abd pain CT UROGRAM ??Sep 11, 2006 3:38:00 PM Clinical history: pt to lab 1st for bun/creatinine. abd pain Comparison: No comparisons. Technique: Pre-contrast scans were initi ally obtained from the top of the kidneys through the bladder. ??This was followed by a contrast-enhanced, nephropyelographic ph ase using a split bolus technique: 30 cc of 370 mg% nonionic IV contrast administered at a rate of 2 cc/second; ??then after a 5-mi nute delay, a 70 cc bolus of 370 mg% IV contrast at 2 cc/second was a dministered; ??images were obtained at 70 seconds after a second maikel baljinder. ??A final pyelographic phase series of the kidneys, ureters and bladder was obtained after an additional 4-minute delay. ??MIP and 3D reformatted images were performed on an independent workstation. Findings: On the initial noncontrast jonatan ges no renal calculi are seen. On the noncontrast images there is cortical irregularity on the posterior aspect of the right upper pole of the kidney consistent with scarring. There is a subcentimeter hypodense lesion in the lower pole of the right kidney consistent with cysts. The left kidney is unremarkable. Bilateral duplication of t he collecting system is seen. On urogram images there is no dilation o f the collecting system except for the right upper moiety ureter which is moderately dilated and implants inferiorly on the bladder. Delayed images show opacification of upper and lower collect ing systems bilaterally. A left fat containing inguinal hernia is noted without associated bowel. Bilateral hydroceles are seen in the testicles Diffuse diverticulosis without associated fat st randing is noted throughout the colon. No free peritoneal air or flu id visualized. Lung bases and visualized portions of the mediastinum a re clear. Liver, spleen, pancreas, and adrenals are without abnor mality. Gallbladder and common bile duct are seen and are unrema rkable. Mild degenerative changes are seen in the spine. Impression: 1. 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 2. Moderate dilatation of the right uppe r moiety ureter with abnormal insertion into the urinary bladder and a ssociated ureterocele. 3. Diffuse colonic diverticulosis. 4. Bilateral hydrocele. 5. Left sac containing inguinal hernia. I have personally reviewed the images an d the above interpretation and agree with the findings. Procedure Note Dale Kang MD / Tony Xie MD - 08/25/2008 pt to lab 1st for bun/creatinine. a bd pain CT UROGRAM Sep 11, 2006 3:38:00 PM Clinical history: pt to lab 1st for bun/creatinine. abd pain Comparison: No comparisons. Technique: Pre-contrast scans were initi ally obtained from the top of the kidneys through the bladder. This wa s followed by a contrast-enhanced, nephropyelographic ph ase using a split bolus technique: 30 cc of 370 mg% nonionic IV contrast administered at a rate of 2 cc/second; then after a 5-abby te delay, a 70 cc bolus of 370 mg% IV contrast at 2 cc/second was a dministered; images were obtained at 70 seconds after a second maikel baljinder. A final pyelographic phase series of the kidneys, ureters and bladder was obtained after an additional 4-minute delay. MIP and 3D reformatted images were performed on an independent workstation. Findings: On the initial noncontrast jonatan ges no renal calculi are seen. On the noncontrast images there is cortical irregularity on the posterior aspect of the right upper pole of the kidney consistent with scarring. There is a subcentimeter hypodense lesion in the lower pole of the right kidney consistent with cysts. The left kidney is unremarkable. Bilateral duplication of t he collecting system is seen. On urogram images there is no dilation o f the collecting system except for the right upper moiety ureter which is moderately dilated and implants inferiorly on the bladder. Delayed images show opacification of upper and lower collect ing systems bilaterally. A left fat containing inguinal hernia is noted without associated bowel. Bilateral hydroceles are seen in the testicles Diffuse diverticulosis without associated fat st randing is noted throughout the colon. No free peritoneal air or flu id visualized. Lung bases and visualized portions of the mediastinum a re clear. Liver, spleen, pancreas, and adrenals are without abnor mality. Gallbladder and common bile duct are seen and are unrema rkable. Mild degenerative changes are seen in the spine. Impression: 1. 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 2. Moderate dilatation of the right uppe r moiety ureter with abnormal insertion into the urinary bladder and a ssociated ureterocele. 3. Diffuse colonic diverticulosis. 4. Bilateral hydrocele. 5. Left sac containing inguinal hernia. I have personally reviewed the images an d the above interpretation and agree with the findings. 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
--- OUTSIDE RECORDS SUMMARY | 2021-10-27 05:56 | XMS_ITS | Encounter Summary ---
:1945 Author Organization [facility] Address [address] [place] [address] Care Team Providers Name Role Phone Unavailable Primary Care Provider Unavailable Encounter Details Date Type Department Care Team Description 09/11/2006 Results Only [facility] Urology Nuzhat Decker, - [facility] [address] [facility] [address] [place] [address] [address] [place] [phone] (Wo rk) Social History Tobacco Use Types Packs/Day Years Used Date Never Assessed Sex Assigned at Date Recorded Not on file documented as of this encounter Plan of Treatment Not on filedocumented as of this encounter Procedures Procedure Name Priority Date/Time Associated Diagnosis Comme nts BUN Routine 09/11/2006 14:19 EDT Results for this procedure are i n the results section . CREATININE Routine 09/11/2006 14:19 EDT Results for this procedure are i n the results section . documented in this encounter Results CREATININE (09/11/2006 14:19 EDT) Pathologist Sig nature Creatinine 1.10 0.7 - 1.5 mg/dl [facility] GFR, Calculated >60 ml/min/1.73m2 [facility] Specimen Performing Organization Address City/[facility]/ZIP Code Phon e Number [facility] [address] [place] [address] SERVICES [facility] [address] [place] [address] BUN (09/11/2006 14:19 EDT) Pathologist Sig nature BUN 17 10 - 26 mg/dl [facility] Specimen Performing Organization Address City/[facility]/ZIP Code Phon e Number [facility] [address] [place] [address] SERVICES [facility] [address] [place] [address] documented in this encounter Visit Diagnoses Not on filedocumented in this encounter
[2021-10-27] MEDS: Celecoxib 200 MG CAP PO (06:51)
[2021-10-27] MEDS: Acetaminophen 500 MG TAB 1000 MG PO (06:51)
[2021-10-27] MEDS: Gabapentin 300 MG CAP PO (06:51)
--- NOTE | 2021-10-27 07:08 | ANES.PREOP_ITS ---
General Info Date of Service Date Performed: 10/27/21 Height: 5 ft 3 in Weight: 69.4 kg Body Mass Index (BMI): 27.1 Surgical Procedure: Operation Date: 10/27/21 07:40 Proposed Procedure Side Surgeon p Herniorrhaphy Inguinal w/Mesh Right Mike Siegel MD Meds Allergies and Home Medications Allergies Allergy/AdvReac Type Severity Reaction Status Date / Time No Known Allergies Allergy Verified 10/26/21 12:46 Home Medication Medication Instructions Recorded aspirin 81 mg tablet,delayed 1 tab PO DAILY 06/05/12 release (Aspir-) ginkgo biloba extract 60 mg capsule 60 mg PO DAILY 04/30/13 magnesium chloride 71.5 mg 71.5 mg PO BID #60 tab-caps 04/25/17 (magnesium chloride) tablet,delayed release (Slow-Mag) blood-glucose meter #1 ea 10/17/18 vit C 250 mg-vit E 90 mg-zinc 40 1 tab PO DAILY 12/18/18 mg-copper 1 qm-ejexps-xxdgst capsule (PreserVision AREDS-2) simvastatin 40 mg tablet (Zocor) 40 mg PO DAILY #90 tab-caps 08/30/20 blood-glucose sensor (Dexcom G6 #3 ea 03/03/21 Sensor device) blood-glucose transmitter (Dexcom #1 ea 03/03/21 G6 Transmitter device) blood sugar diagnostic #100 ea 03/21/21 lancets 28 gauge #100 ea 03/21/21 blood sugar diagnostic (Blood #10 ea 03/22/21 Glucose Test strips) blood-glucose meter #1 ea 03/22/21 empagliflozin 25 mg tablet 25 mg PO DAILY #90 tab-caps 04/04/21 (Jardiance) omeprazole magnesium 20 mg 20 mg PO DAILY #90 tab-caps 06/19/21 tablet,delayed release (Prilosec OTC) tamsulosin 0.4 mg capsule 0.4 mg PO QHS bph #90 caps 09/11/21 glipizide 10 mg tablet, extended 20 mg PO DAILY #180 tab-caps 09/18/21 release 24 hr insulin glargine 100 unit/mL (3 25 unit (0.25 mL) subcut DAILY #24 09/20/21 mL) subcutaneous pen (Lantus mL Solostar U-100 Insulin) metformin 1,000 mg tablet 1,000 - 1,500 mg PO BID #225 10/03/21 tab-caps pen needle, diabetic 31 gauge x #100 ea 10/09/2105/10 (Comfort EZ Pen [place]) Current Visit Medications: Current Medications Generic Name Dose Route Start Last Admin Trade Name Luz PRN Reason Stop Dose Admin Acetaminophen 1,000 mg 10/27/21 06:00 10/27/21 06:51 Acetaminophen 500 Mg Tab PO 10/27/21 16:00 1,000 mg PREOP LEIDA Administration Celecoxib 200 mg 10/27/21 06:00 10/27/21 06:51 Celecoxib 200 Mg Cap PO 10/27/21 16:00 200 mg PREOP LEIDA Administration Gabapentin 300 mg 10/27/21 06:00 10/27/21 06:51 Gabapentin 300 Mg Cap PO 10/27/21 16:00 300 mg PREOP LEIDA Administration Ringer's Solution 1,000 mls @ 80 mls/hr 10/27/21 06:00 IV 10/27/21 16:00 INFUSION LEIDA Cefazolin Sodium/Dextrose 2 gm in 50 mls @ 100 mls/hr 10/27/21 06:00 Ancef Duplex IVPB 10/27/21 16:00 PREOP LEIDA IV Miscellaneous Supplies 1 each 10/27/21 06:00 Iv Access IV 10/27/21 16:00 DIRECTED LEIDA Sodium Chloride 0 ml 10/27/21 06:00 Normal Saline Flush 10 Ml Syr IV 10/27/21 16:00 PRN PRN Sodium Chloride 0 ml 10/27/21 06:00 Normal Saline 10 Ml Vial IJ 10/27/21 16:00 DIRECTED PRN Sterile Water 0 ml 10/27/21 06:00 Water,Injection,Sterile 10 Ml Vial IJ 10/27/21 16:00 DIRECTED PRN PFSH Active Problems Active Problems: Problem Status Onset Code Diabetes mellitus E11.9 Gastroesophageal reflux disease without esophagitis K21.9 Hyperlipidemia E78.5 Benign prostatic hyperplasia N40.0 Diabetic retinopathy ~06/2021 E11.319 Inguinal hernia of left side without obstruction or gangrene K40.90 B12 deficiency E53.8 Heart murmur R01.1 Medical History Medical History (Updated 10/27/21 @ 06:42 by Mary Quintero RN) History of alcoholism [place] (hard of hearing) Surgical History Surgical History (Updated 10/27/21 @ 06:18 by Mary Quintero RN) History of appendectomy History of hernia repair Tonsillectomy and adenoidectomy Tobacco Smoking/Tobacco Use Status: Never Alcohol Alcohol Intake: former Substance Use Substance use: Never Substance use type: does not use Vital Signs and Lab Results Vital Signs Most Recent Vital Signs in EMR: Most Recent Vital Signs Temp Pulse Resp BP Pulse Ox 36.4 C L 78 16 130/85 98 10/27/21 06:05 10/27/21 06:05 10/27/21 06:05 10/27/21 06:05 10/27/21 06:05 Lab Results Blood Type / Crossmatch: No Data to Display Complete Blood Count: No Data to Display Complete Metabolic Panel: No Data to Display Liver Function Panel: No Data to Display Coagulation Panel: No Data to Display Cardiac Panel: No Data to Display Arterial Blood Gas: No Data to Display Venous Blood Gas: No Data to Display Pancreas Panel: No Data to Display Thyroid Panel: No Data to Display Infectious Disease: Coronavirus (COVID-19)(PCR) Negative (Negative) 10/25/21 08:42 Coronavirus 2019 Source Nasal/Nares 10/25/21 08:42 Blood Cultures: No Data to Display Toxicology Panel: No Data to Display Imaging and Studies Imaging and Studies Study information below may be from another EMR and interpreted by another provider. Please see original notes in EMR for more complete details. Echocardiogram Summary: 10/16/21 Indications: Systolic heart murmur Other Information Study Quality: Adequate Conclusion Normal left ventricular wall thickness and chamber size. Estimated ejection fraction is 55 to 60%. Wall motion is normal Normal right ventricular size and systolic function Both atria are normal in size Trileaflet aortic valve with trace regurgitation Normal mitral valve with trace regurgitation Normal tricuspid valve with trace regurgitation Mildly dilated ascending aorta measuring 3.67 cm Anesthesia Assessment and Plan Anesthesia History Personal History: No History of Anesthesia Complications Family History: No Family History of Anesthesia Complications Exercise Tolerance Exercise Tolerance: Metabolic Equivalents>4 Pertinent Negatives Pertinent Negatives: No Symptoms of GERD Cardiac & Pulmonary Exam Cardiac Exam: Normal S1/S2 Heart Sounds Pulmonary Exam: Clear Bilateral Breath Sounds Implantable Cardiac Device Does patient have a Pacemaker or an ICD?: No Airway Exam Known Difficult Airway: No Mallampati Class: 2 Mouth Opening: Normal (> 3cm) Thyromental Distance: Greater than 3 cm Neck Range of Motion: Full ROM Neck Circumference: Normal Teeth Condition: Normal Dentition ASA Classification ASA Score: ASA 2 Emergency Case?: No NPO Status NPO Status: NPO Clears >2 hours, Solids >8 hours Anesthesia Plan Resuscitation Status: Full Code Anesthesia Technique: General Anesthesia Airway Planned: LMA Pain Management: Surgeon and patient request nerve block Monitors Used: Standard Monitors
[2021-10-27] MEDS: Lactated Ringers 1,000 ML 80 ML IV (07:15)
[2021-10-27] MEDS: ceFAZolin 2 GM/50 ML BAG IVPB (07:53)
[2021-10-27] MEDS: Bupivacaine 0.5% Pres-Free W/EPI 30 ML VIAL (07:58)
--- NOTE | 2021-10-27 08:44 | W.ANESNERVE ---
Nerve Block Single Injection Procedure Date and Time Date Performed: 10/27/21 Procedure Start: 07:48 Location Where Procedure Performed Procedure Location: Operating Room Procedure Stop: 07:55 Reason Performed: Postoperative Analgesia Requesting Provider: Mike Siegel Timeout Performed Timeout Performed: Yes Monitoring Used ECG, Blood Pressure, SpO2 and ETCO2 Sterility Sterility: Hand Hygiene, Surgical Cap, Surgical Mask, Sterile Gloves and Chlorhexidine Sedation Given During Procedure Sedation Given (Indicate Dose Given): No Sedation given Patient Mental Status Patient Mental Status: Performed under general anesthesia Nerve Block 1st Nerve Block: Laterality: Right Block Type: TAP Unilateral Needle / Catheter Used: 100mm SonoPlex II Local Anesthetic Bolus (Indicate Dose Given): Injected in 3-5ml increments after negative blood aspiration and Bupivacaine 0.25% Dose:: 20 ml Additives (Indicate Dose Given): Precedex Dose:: 70 mcg Ultrasound: Sterile probe cover and gel used Ultrasound Image Saved?: Yes Nerve Stimulator: Not Used Paresthesia: None Procedure Tolerated: No Complications and Patient tolerated well Procedure Outcome: Successful Performed By: Tad Casiano
--- NOTE | 2021-10-27 10:28 | W.PM.DSUDISC ---
Discharge Plan Disposition Patient Disposition: HOME Condition: Good Discharge Details Reason For Visit: right direct inguinal hernia repair Attending Provider: Mike Siegel Primary Care Provider: Sreedhar Navarro Home Meds and New Rx's Prescriptions: Continued PreserVision AREDS-2 [id number] qo-dmkr-em-mg capsule 1 tab PO DAILY aspirin [Aspir-81] 81 MG tablet,delayed release (DR/EC) 1 tab PO DAILY ginkgo biloba extract 60 MG capsule 60 mg PO DAILY Slow-Mag 71.5 MG tablet,delayed release (DR/EC) 71.5 mg PO BID Qty: 60 2RF (DME) blood-glucose meter Misc 1 ea Miscellaneous ONCE Qty: 1 0RF Rx Instructions: METER TYPE ONE TOUCH ULTRA MINI test daily simvastatin [Zocor] 40 mg tablet 40 mg PO DAILY Qty: 90 4RF (DME) Dexcom G6 Transmitter Device See Rx Instructions .ROUTE .MEDSUPPLY Qty: 1 0RF Rx Instructions: As directed (DME) Dexcom G6 Sensor Device See Rx Instructions .ROUTE .MEDSUPPLY Qty: 3 0RF Rx Instructions: As directed (DME) lancets 28 gauge misc 1 ea Miscellaneous DAILY Qty: 100 3RF Rx Instructions: FOR ONE TOUCH ULTRA MINI METER test once/day (DME) blood sugar diagnostic Strip See Rx Instructions .ROUTE .MEDSUPPLY Qty: 100 3RF Rx Instructions: test once a day (DME) blood-glucose meter Misc See Rx Instructions .ROUTE .MEDSUPPLY Qty: 1 0RF Rx Instructions: As directed, daily (DME) Blood Glucose Test Strip See Rx Instructions .ROUTE .MEDSUPPLY Qty: 10 0RF Rx Instructions: As directed, once a day Jardiance 25 mg tablet 25 mg PO DAILY Qty: 90 3RF omeprazole magnesium [Prilosec OTC] 20 mg tablet,delayed release (DR/EC) 20 mg PO DAILY Qty: 90 4RF tamsulosin 0.4 mg capsule 0.4 mg PO QHS Qty: 90 4RF glipizide 10 mg tablet extended release 24hr 20 mg PO DAILY Qty: 180 0RF Rx Instructions: take 2 tablets daily insulin glargine [Lantus Solostar U-100 Insulin] 100 unit/mL (3 mL) insulin pen 25 unit subcut DAILY Qty: 24 3RF metformin 1,000 mg tablet 1,000 - 1,500 mg PO BID Qty: 225 1RF Rx Instructions: Take one tablet in am and 1.5 tablet in evening (DME) pen needle, diabetic [Comfort EZ Pen [place]] 31 gauge x 3/16 needle See Rx Instructions .ROUTE .MEDSUPPLY Qty: 100 4RF Rx Instructions: Daily Discharge Instructions Instructions: Open Herniorrhaphy (IP) Additional Instructions: 1. Resume all of your medications. 2. Okay to use tylenol and ibuprofen over the counter as needed. 3. Leave bandage in place for 24 hours, then remove. 4. Shower with warm soapy water. Pat dry. Use a bandaid if needed to protect your clothing. 5. No soaking or tub baths until I see you in the office. 6. No heavy lifting until I see you in the office. 7.Call the office (or go directly to the emergency room after hours) if you notice any of the following: Develop chills (warm to touch), or if you have a thermometer and your temperature is above 101 Difficulty breathing or difficultly swallowing Persistent vomiting Any bleeding ? exceeding one tablespoon 8. Call your physician if the site where your intravenous was started becomes red, swollen, painful, and warm to touch. Referrals: Mike Siegel MD [ [facility] STAFF PHYSICIAN] - Activity:: no heavy lifting Remove Dressings/Wound Care:: 24 hours Shower/Bathe:: 24 hours Diet:: As Tolerated Discharge Orders Discharge Orders: Discharge Order (Routine); Ordered 10/27/21 Ordered By: Mike Siegel
--- NOTE | 2021-10-27 11:17 | W.ANESPOSTOP ---
Postoperative Evaluation Date, Time and Location Date Performed: 10/27/21 Time Performed: 10:16 Patient Location: Day Surgery Unit Vital Signs Most Recent Imported Vital Signs: Most Recent Vital Signs Temp Pulse Resp BP Pulse Ox 36.0 C L 55 L 18 98/54 L 96 10/27/21 09:52 10/27/21 09:52 10/27/21 09:52 10/27/21 09:52 10/27/21 09:52 Pain Score Most Recent Pain Score: Most Recent Pain Score Pain Level 3 10/27/21 09:52 Assessment Mental Status: Awake (Alert & Oriented to Patient Baseline) Airway and Respiratory Function: Patent airway with normal (patient baseline) respiratory exam Cardiovascular Function: Hemodynamically Stable Hydration Status: Adequately Hydrated Nausea & Vomiting: No Nausea or Vomiting Pain: Pain is tolerable per patient Peripheral Nerve Block: Patient did not receive a nerve block
== END 2021-10-27 11:30 | disposition home or self-care (01) ==
PROVIDERS: PCP Nurse Practitioner Family; Visit Provider Surgery
PROC: (CPT 49505; principal; 2021-10-27 07:30)
DX: K40.90 Unilateral inguinal hernia, without obstruction or gangrene, not specified as recurrent (principal); E11.65 Type 2 diabetes mellitus with hyperglycemia; E78.5 Hyperlipidemia, unspecified; Z79.4 Long term (current) use of insulin
CPT/HCPCS: 49505; 76942; C1781; J0690; J1100; J2405; J2704

== ENCOUNTER → 2021-11-13 12:52 | Outpatient (BNVA) | payer MEDICARE, OTHER, SELFPAY | PROVIDERS: PCP Nurse Practitioner Family; Referring Provider Nurse Practitioner Family; Visit Provider Surgery | DX: Z48.817 Encounter for surgical aftercare following surgery on the skin and subcutaneous tissue (principal) ==

== ENCOUNTER 2023-12-25 01:32 | Outpatient (CLI) | payer MEDICARE, SELFPAY ==
[2023-12-25 12:44] LABS: Anion Gap 14.7 mmol/L (3-11); BUN 27 mg/dL (7-18); CO2 23.3 mmol/L (21.0-32.0); CREATININE 1.2 mg/dL (0.70-1.30); Calcium 9.3 mg/dL (8.5-10.1); Calculated LDL 3 mg/dL (<100); Chloride 108 mmol/L (98-107); Cholesterol 121 mg/dL (<200); Estimated GFR 61.13 (mL/min/1.73m2); Glucose 198 mg/dL (74-106); HDL Cholesterol 53 mg/dL (40-60); Potassium 4.4 mmol/L (3.5-5.1); Sodium 146 mmol/L (136-145); Triglyceride 328 mg/dL (<150)
== END 2023-12-25 01:33 | disposition home or self-care (01) ==
LOC: LOS 01:32
PROVIDERS: PCP Nurse Practitioner Family; Visit Provider Nurse Practitioner Family
DX: Z13.6 Encounter for screening for cardiovascular disorders (principal); Z13.1 Encounter for screening for diabetes mellitus; Z23 Encounter for immunization; E78.2 Mixed hyperlipidemia; E11.9 Type 2 diabetes mellitus without complications
CPT/HCPCS: 36415; 80048; 80061